=== PATIENT | male | born 1990 | race American Indian/Alaskan Native ===

== ENCOUNTER 2017-03-31 14:15 | Emergency (ER) | payer SELFPAY ==
[2017-03-31 15:04] VITALS: BP 127/87
--- NOTE | 2017-03-31 15:12 | Emergency Department Report ---
Entered by OKSANA RAWLS, acting as scribe for KAROLINE GRANDA NP. Chief Complaint: Dental/Oral Stated Complaint: TOOTH PAIN/ABSCESS Time Seen by Provider: 03/31/17 15:00 - HPI History of Present Illness: 27 y/o male presents to the ED c/o toothache x a few months. Associated symptoms include swelling to left lower facial area x 3 days. Denies fever and chills. States he has broken tooth. Taking OTC meds with some relief. NKDA. - ROS Review of Systems: +toothache +left lower facial swelling -fever -chills - Exam Vital Signs: Vital Signs 03/31/17 14:59 Temperature 98.9 F Pulse Rate 74 Respiratory 17 Rate Blood Pressure 127/87 O2 Sat by Pulse 97 Oximetry Physical Exam: pt looks well, non toxic. facial swelling noted to L jaw Wide spread dental decay MSE screening note: Focused history and physical exam performed. Due to findings the following was ordered: ED Disposition for MSE Condition: Stable This documentation as recorded by the scribe,OKSANA RAWLS,accurately reflects the service I personally performed and the decisions made by KALEE dupree TRACY M, LIANET.
[2017-03-31] MEDS ORDERED: MOTRIN PO ONE (16:38)
--- NOTE | 2017-03-31 17:42 | Emergency Department Report ---
ED ENT HPI - General Chief complaint: Dental/Oral Stated complaint: TOOTH PAIN/ABSCESS Time Seen by Provider: 03/31/17 15:00 Source: patient Mode of arrival: Ambulatory Limitations: No Limitations - History of Present Illness Initial comments: This is a 27-year-old male well-nourished with nontoxic or ill in appearance that presents with toothache x 5 months and left lower facial swelling x3 days. Patient describes toothache as aching level of 10/10. Patient denies any trauma. Denies any fever, chills, headache, stiff neck, n/v, dizziness, CP, SOB , numbness or tingling. Patient stated has been taking BC powered OTC with mild relief. Patient denies any difficulty opening mouth. Denies pus or drainage. Denies past medical history. Denies allergies. MD complaint: tooth pain -: Gradual, month(s) (5) Location: tooth # (21) Severity: moderate Severity scale (0 -10): 10 Quality: aching Consistency: constant Improves with: none Worsens with: none Context- Dental: history of dental caries, poor dental care Associated Symptoms: toothache. denies: fever, cough, gum swelling, pain with swallowing, sore throat, tinnitus, hearing loss, discharge from ear, rhinorrhea - Related Data Previous Rx's Medication Instructions Recorded Last Taken Type Acetaminophen/Codeine [Tylenol #3] 1 tab PO Q6H PRN #10 tab 07/17/16 Unknown Rx Amoxicillin/K Clav Tab [Augmentin 1 tab PO Q12HR #20 tab 03/31/17 Unknown Rx 875 mg] Ibuprofen [Motrin 600 MG tab] 600 mg PO Q8H PRN #20 tablet 03/31/17 Unknown Rx predniSONE [Deltasone] 20 mg PO BID #10 tab 03/31/17 Unknown Rx Allergies Allergy/AdvReac Type Severity Reaction Status Date / Time pineapple Allergy Anaphylaxis Verified 03/31/17 15:04 ED Dental HPI - General Chief complaint: Dental/Oral Stated complaint: TOOTH PAIN/ABSCESS Time Seen by Provider: 03/31/17 15:00 Source: patient Mode of arrival: Ambulatory Limitations: No Limitations - Related Data Previous Rx's Medication Instructions Recorded Last Taken Type Acetaminophen/Codeine [Tylenol #3] 1 tab PO Q6H PRN #10 tab 07/17/16 Unknown Rx Amoxicillin/K Clav Tab [Augmentin 1 tab PO Q12HR #20 tab 03/31/17 Unknown Rx 875 mg] Ibuprofen [Motrin 600 MG tab] 600 mg PO Q8H PRN #20 tablet 03/31/17 Unknown Rx predniSONE [Deltasone] 20 mg PO BID #10 tab 03/31/17 Unknown Rx Allergies Allergy/AdvReac Type Severity Reaction Status Date / Time pineapple Allergy Anaphylaxis Verified 03/31/17 15:04 ED Review of Systems ROS: Stated complaint: TOOTH PAIN/ABSCESS Other details as noted in HPI Constitutional: denies: chills, fever Eyes: denies: eye pain, eye discharge, vision change ENT: denies: ear pain, throat pain Respiratory: denies: cough, shortness of breath, wheezing Cardiovascular: denies: chest pain, palpitations Endocrine: no symptoms reported Gastrointestinal: denies: abdominal pain, nausea, diarrhea Genitourinary: denies: urgency, dysuria Musculoskeletal: denies: back pain, joint swelling, arthralgia Skin: denies: rash, lesions Neurological: denies: headache, weakness, paresthesias Psychiatric: denies: anxiety, depression Hematological/Lymphatic: denies: easy bleeding, easy bruising ED Past Medical Hx - Past Medical History Previous Medical History?: No - Surgical History Additional Surgical History: oral - Social History Smoking Status: Current Every Day Smoker Substance Use Type: None - Medications Home Medications: Home Medications Medication Instructions Recorded Confirmed Last Taken Type Acetaminophen/Codeine [Tylenol #3] 1 tab PO Q6H PRN #10 tab 07/17/16 Unknown Rx Amoxicillin/K Clav Tab [Augmentin 1 tab PO Q12HR #20 tab 03/31/17 Unknown Rx 875 mg] Ibuprofen [Motrin 600 MG tab] 600 mg PO Q8H PRN #20 tablet 03/31/17 Unknown Rx predniSONE [Deltasone] 20 mg PO BID #10 tab 03/31/17 Unknown Rx ED Physical Exam - General Limitations: No Limitations General appearance: alert, in no apparent distress - Head Head exam: Present: atraumatic, normocephalic, normal inspection - Eye Eye exam: Present: normal appearance, PERRL, EOMI. Absent: scleral icterus, conjunctival injection, nystagmus, periorbital swelling, periorbital tenderness Pupils: Present: normal accommodation - ENT ENT exam: Present: normal exam, normal orophraynx, mucous membranes moist, TM's normal bilaterally, normal external ear exam - Expanded ENT Exam Expanded Mouth exam: Present: normal external inspection, tongue normal. Absent: drooling, trismus, muffled voice, tongue elevation, laceration Teeth exam: Present: normal inspection, dental caries, fractured tooth # (21), dental tenderness # (21,22,23), gingival enlargement, other (slight left lower facial swelling. No pus or drainage noted. No trismus noted. Uvula midline. No fluctuance noted.) Throat exam: Positive: normal inspection. Negative: tonsillar erythema, tonsillomegaly, tonsillar exudate, R peritonsillar mass, L peritonsillar mass - Neck Neck exam: Present: normal inspection, full ROM. Absent: tenderness, meningismus, lymphadenopathy, thyromegaly - Respiratory Respiratory exam: Present: normal lung sounds bilaterally. Absent: respiratory distress, wheezes, rales, rhonchi, stridor, chest wall tenderness, accessory muscle use, decreased breath sounds, prolonged expiratory - Cardiovascular Cardiovascular Exam: Present: regular rate, normal rhythm, normal heart sounds. Absent: bradycardia, tachycardia, irregular rhythm, systolic murmur, diastolic murmur, rubs, gallop - GI/Abdominal GI/Abdominal exam: Present: soft, normal bowel sounds. Absent: distended, tenderness, guarding, rebound, rigid, diminished bowel sounds - Rectal Rectal exam: Present: deferred - Extremities Exam Extremities exam: Present: normal inspection, full ROM, normal capillary refill. Absent: tenderness, pedal edema, joint swelling, calf tenderness - Back Exam Back exam: Present: normal inspection, full ROM. Absent: tenderness, CVA tenderness (R), CVA tenderness (L), muscle spasm, paraspinal tenderness, vertebral tenderness, rash noted - Neurological Exam Neurological exam: Present: alert, oriented X3, CN II-XII intact, normal gait, reflexes normal - Psychiatric Psychiatric exam: Present: normal affect, normal mood - Skin Skin exam: Present: warm, dry, intact, normal color. Absent: rash ED Course Vital Signs 03/31/17 14:59 Temperature 98.9 F Pulse Rate 74 Respiratory 17 Rate Blood Pressure 127/87 O2 Sat by Pulse 97 Oximetry - Reevaluation(s) Reevaluation #1: 03/31/17 17:44 Patient is laughing and talking with mother. No signs of distress noted. ED Medical Decision Making - Medical Decision Making Ed course: This is a 27-year-old male that presents with fracture tooth #21 and toothache with slight facial swelling of lower region 1- patient was examined by myself. Patient received Solu-Medrol 125 mg IM and ibuprofen 800 mg in ED. 2 patient was instructed to follow-up with a dentist in 24 hours or maxilla oral surgeon or if symptoms worsen such as increased facial swelling, pus, drainage, increasing unbearable pain return to emergency room as soon as possible. 3- patient received Augmentin and ibuprofen at time of discharge as well as prednisone. 4- at time time of discharge, the patient does not seem toxic or ill in appearance. No acute signs of distress noted. Patient agrees to discharge treatment plan of care. No further questions noted by the patient. Critical care attestation.: If time is entered above; I have spent that time in minutes in the direct care of this critically ill patient, excluding procedure time. ED Disposition Clinical Impression: Toothache Disposition: [id number] TO HOME OR SELFCARE Is pt being admited?: No Does the pt Need Aspirin: No Condition: Stable Instructions: Toothache (ED), Ibuprofen (By mouth), Prednisone (By mouth), Amoxicillin/Clavulanate Potassium (By mouth) Additional Instructions: Follow-up with a dentist in 24 hours or maxilla oral surgeon or if symptoms worsen such as increased facial swelling, pus, drainage, increasing unbearable pain return to emergency room as soon as possible. Take full course of antibiotics and prednisone as prescribed. Prescriptions: Amoxicillin/K Clav Tab [Augmentin 875 mg] 1 tab PO Q12HR #20 tab Ibuprofen [Motrin 600 MG tab] 600 mg PO Q8H PRN #20 tablet PRN Reason: Pain predniSONE [Deltasone] 20 mg PO BID #10 tab Referrals: [facility] [Outside] - 3-5 Days FRANCISCO GARCIA JR, MD [Staff Physician] - 3-5 Days PRIMARY CARE, [Referring] - 3-5 Days [facility] [Outside] - 24 Hours Forms: Work/School Release Form(ED)
== END 2017-03-31 18:20 | disposition home or self-care (01) ==
LOC: ED 14:15
DX: K08.89 Other specified disorders of teeth and supporting structures (principal); F17.210 Nicotine dependence, cigarettes, uncomplicated; Z91.018 Allergy to other foods
CPT/HCPCS: 96372; 99282; J2930